=== PATIENT | female | born 1970 | race Hispanic/Latino ===

== ENCOUNTER 2018-01-05 09:50 | Outpatient (CLI) | payer OTHER ==
--- NOTE | 2018-01-12 11:27 | MMO ---
BILATERAL SCREENING MAMMOGRAM: DATE: 01/05/18 HISTORY: 48-year-old female for screening mammography. COMPARISON: 11/16/16, 04/25/15. FINDINGS: Bilateral MLO and CC views of the breasts show scattered fibroglandular breast tissue. There is no ev idence of suspicious mass, suspicious cluster of microcalcifications, or area of architectural distor tion. Interpretation of this mammogram was performed with the assistance of computer-aided detection. IMPRESSION: BIRADS 1: Negative Annual screening mammography is recommended. POS: WILMER
== END 2018-01-05 09:51 | disposition home or self-care (01) ==
LOC: SCSMAMMO 09:50
PROVIDERS: ATTEND Family Medicine
DX: Z12.31 Encounter for screening mammogram for malignant neoplasm of breast (principal)
CPT/HCPCS: 77067

== ENCOUNTER 2019-06-27 12:08 | Outpatient (CLI) | payer OTHER ==
[2019-06-27 13:59] LABS: Hemoglobin 13.1 g/dL (12.0-16.0); Mean Corpuscular HGB CONC 33.7 g/dL (32.0-36.0); Mean Corpuscular Hemoglobin 30.7 pg (27.0-31.0); Mean Corpuscular Volume 91.1 fL (78.0-98.0); Mean Platelet Volume 7.8 fL (7.4-10.4); Platelet Count 262 thou/uL (130-400); RBC Distribution Width 12.3 % (11.5-14.5); Red Blood Cell (RBC) Count 4.27 mill/uL (4.20-5.40)
== END 2019-06-27 12:09 | disposition home or self-care (01) ==
LOC: LABBT 12:08
PROVIDERS: ATTEND Obstetrics & Gynecology
DX: Z01.812 Encounter for preprocedural laboratory examination (principal); D21.9 Benign neoplasm of connective and other soft tissue, unspecified; N92.0 Excessive and frequent menstruation with regular cycle; N81.10 Cystocele, unspecified; N39.3 Stress incontinence (female) (male)
CPT/HCPCS: 85027; 86850; 86900; 86901

== ENCOUNTER 2019-06-30 06:06 | Day surgery (SDC) | payer OTHER ==
--- NOTE | 2019-06-27 12:21 | HP ---
SCHEDULED DATE OF SURGERY: 06/30/2019. HISTORY OF PRESENT ILLNESS: Ms. Renner is a 49-year-old Latin-Croatian female, G4, P4, with tubal ligation, who has been reporting consistently irregular and heavy painful menstrual cycles. She has tried nonsteroidals in the past with no significant improvement. She saturates a super tampon an hour at times and flows for 7 to 10 days. She also feels pressure in the pelvis when she stands and loses urine with coughing and sneezing and has to wear a pad daily for urinary incontinence issues. She has no urge or frequency issues. She has had a normal Pap smear in 2018. Biopsy for evaluation of menorrhagia on 05/24/2019 was benign. PAST MEDICAL AND SURGICAL HISTORY: Her past medical and surgical history as noted was a tubal ligation. No chronic medical issues. She does use [place] as needed for some allergic rhinitis. SOCIAL HISTORY: She is a nonsmoker. No excessive alcohol use. ALLERGIES: SHE HAS ALLERGY TO FOOD, WHICH IS A CHRIS FRUIT. FAMILY HISTORY: Noncontributory. PHYSICAL EXAMINATION: VITAL SIGNS: Her height is 5 feet 1 inches, weight 165 pounds, and BMI 31.2. Blood pressure in 102/62, pulse 62, respirations 18, and O2 saturation on room air 99%. HEENT: Within normal limits. CHEST: Clear to auscultation. HEART: Regular rate and rhythm. S1 and S2 heart sounds. No murmurs, rubs, or gallops. ABDOMEN: Soft, nontender, and nondistended with no palpable masses. PELVIC: Vulva and vagina had no lesions. She has a hypermobile UV angle of 45 degrees with Valsalva and leak noted. She has a grade 2 cystocele appreciated. Uterus was small and nontender with some uterine prolapse noted. Adnexa were nontender with no masses. The uterus sounded to 9 cm for the E and D procedure. ASSESSMENT: This is a 49-year-old Latin-Croatian female, G4, P4, prior tubal ligation with menorrhagia and a midline cystocele. She also has genuine stress incontinence. Desiring definitive surgical therapy. PLAN: Plan is to proceed with robotic total laparoscopic hysterectomy and removal of bilateral tubal segments, followed by anterior repair with Advantage Fit TVT with cystoscopy. Risks and benefits of procedure, I have discussed in detail. She is set for surgery on 06/30/2019. Job ID: [id number]
[2019-06-27 12:23] VITALS: BMI 30.3
[2019-06-30] MEDS ORDERED: Famotidine/PF 20 mg/2ml Vial ONE (06:14)
[2019-06-30] MEDS ORDERED: Gabapentin 300 MG CAP ONE (06:14)
[2019-06-30] MEDS ORDERED: CeleCOXIB 100 MG CAP ONE (06:14)
[2019-06-30] MEDS ORDERED: Lidocaine 2% Jelly 5 ML TUBE ONE (06:25)
[2019-06-30] MEDS ORDERED: Fentanyl 100 MCG/2 ML VIAL ONE (06:25)
[2019-06-30] MEDS ORDERED: Lidocaine 1% w/Epinephrine 1:100K 20 ML VIAL ONE (06:52)
[2019-06-30] MEDS ORDERED: Bupivacaine PF 0.5% 30 ML VIAL ONE (06:52)
[2019-06-30 07:27] LABS: BHCG - Serum Negative (NEGATIVE); Pregs Control Background? CLEAR/WHITE (CLR/WHITE); Pregs Control Bar Appear? YES (CONTROL BAR)
[2019-06-30] MEDS ORDERED: Midazolam HCl 2 mg/2 ml Vial ONE (07:31)
[2019-06-30] MEDS ORDERED: PROPOFOL 200 MG/20 ML VIAL ONE (10:09)
[2019-06-30] MEDS ORDERED: Glycopyrrolate 0.2 MG/ML 5 ML SYRINGE ONE (10:09)
[2019-06-30] MEDS ORDERED: Ketorolac Tromethamine 30 MG/ML VIAL ONE (10:09)
[2019-06-30] MEDS ORDERED: Lidocaine 1% PF 5 ML VIAL ONE (10:09)
[2019-06-30] MEDS ORDERED: Ondansetron PF 4 MG/2 ML Vial ONE (10:09)
[2019-06-30] MEDS ORDERED: ePHEDrine/0.9% NaCl/PF SYRINGE 50 mg/10 ml ONE (10:09)
[2019-06-30] MEDS ORDERED: Dexamethasone 20 MG/5 ML VIAL ONE (10:09)
[2019-06-30] MEDS ORDERED: Rocuronium Bromide 10 MG/ML (10ML VIAL) ONE (10:09)
[2019-06-30] MEDS ORDERED: PHENYLEPHRINE-NS 100 MCG/ML 10 ML SYRINGE ONE (10:09)
[2019-06-30] MEDS ORDERED: Promethazine HCl 25 MG/ML VIAL SLOW IVP PRN (10:41)
[2019-06-30] MEDS ORDERED: Promethazine HCl 25 MG/ML VIAL IM PRN ×2 (10:41→11:52)
[2019-06-30] MEDS ORDERED: Ondansetron HCl/PF 4 MG/2 ML Vial IVP PRN (10:41)
[2019-06-30] MEDS ORDERED: diphenhydrAMINE 25 MG CAP PO PRN (11:52)
[2019-06-30] MEDS ORDERED: Ondansetron PF 4 MG/2 ML Vial IVP PRN (11:52)
[2019-06-30] MEDS ORDERED: Bisacodyl 10 MG SUPP PR PRN (11:52)
[2019-06-30] MEDS ORDERED: Simethicone Chewable 80 MG TAB PO PRN (11:52)
[2019-06-30] MEDS ORDERED: Acetaminophen 325 MG TAB PO PRN (11:52)
[2019-06-30] MEDS ORDERED: Zolpidem Tartrate 5 MG TAB PO PRN (11:52)
[2019-06-30] MEDS ORDERED: Morphine 4 MG/ML VIAL SLOW IVP PRN (11:52)
[2019-06-30] MEDS: Lactated Ringer's 1,000 ML IV SCH ×2 (12:04→20:15)
[2019-06-30] MEDS: Ketorolac Tromethamine 30 MG/ML VIAL IVP SCH ×3 (12:38→23:39)
--- NOTE | 2019-06-30 13:53 | OP ---
DATE OF PROCEDURE: 06/30/2019 PREOPERATIVE DIAGNOSES: 1. A 49-year-old Latin-Cuban female with menorrhagia, suspected uterine myomas and adenomyosis. 2. Grade 2 cystocele. 3. Genuine stress incontinence. POSTOPERATIVE DIAGNOSES: 1. A 49-year-old Latin-Cuban female with menorrhagia, suspected uterine myomas and adenomyosis. 2. Grade 2 cystocele. 3. Genuine stress incontinence. PROCEDURES PERFORMED: 1. Robotic total laparoscopic hysterectomy, bilateral salpingectomy. 2. Anterior repair. 3. Advantage Fit TVT with cystoscopy. CHILD DEVELOPMENT CONSULTANT SURGEON: Roxana Petty DO ANESTHESIA: General endotracheal. ESTIMATED BLOOD LOSS: 200 mL. COMPLICATIONS: None. COUNTS: Correct x2. ANTIBIOTICS: 2 g Ancef and on-call to OR. FINDINGS: 1. Bilateral normal-appearing ovaries and fallopian tubes status post tubal ligation. 2. Boggy adenomyotic appearing uterus with small uterine myomas noted. 3. Clear urine present in Shannon catheter postprocedure. 4. Cystoscopy of bladder showed bladder to be watertight to fluid distention with bilateral ureteral orifice displaying efflux post TVT procedure. 5. No evidence of any mesh placement or trocar placement within the bladder on cystoscopy evaluation. DISPOSITION: Recovery room, stable. DESCRIPTION OF PROCEDURE: The patient previously received informed consent in regard to surgery. She was taken back to the operating room, where she received a general endotracheal anesthetic agent without complications. She was placed in the dorsal lithotomy position with the use of Bud stirrups, prepped and draped in usual sterile fashion. A side-arm speculum was placed in vagina. The cervix was grasped with single-tooth tenaculum. The uterus sounded to 10 cm. A size 10-cm SUDEEP uterine manipulator with a 4.0-cm cup was placed. Tenaculum and speculum were removed. Attention was then turned to the abdomen, where perspective trocar sites were infiltrated with 0.5% Marcaine with epinephrine. A 12-mm supraumbilical incision was made and a Veress needle was introduced in the peritoneal cavity. The patient's pressure was noted to be less than 5 mm. Abdomen was insufflated with the patient's pressure of 15, approximately 5 L of carbon dioxide gas. Veress needle was then removed. A size 12-mm trocar was then placed through the supraumbilical incision and then the laparoscope was introduced through the trocar sleeve, confirming proper entry. Bilateral lower quadrant 8-mm trocars were then placed under laparoscopic guidance along with the right upper quadrant 11-mm bindery assistant port. We placed the patient in Trendelenburg position and then docked the robot in usual fashion. I broke scrub and then proceeded to carry out the procedure from the operative console while my assistants remained at the bedside. The uterus was elevated from the pelvis. The left fallopian tube fimbria was grasped by my bindery assistant. I coagulated the remainder of the mesosalpinx and then remainder of the fallopian tube and this was excised with monopolar scissors and removed out through the right upper quadrant bindery assistant port. The left uterine ovarian ligament was coagulated and transected. Serial coagulation of broad ligament hugging close to uterus was carried out until the left round ligament was reached. It was coagulated and transected. The anterior leaf of the broad ligament was entered and the vesicouterine peritoneum was incised in layering technique, dropping the bladder, past the cervicovaginal angle atraumatically. The uterine vessels were skeletonized and coagulated in the internal cervical os region. This was carried out in likewise fashion on the right side of the uterus. Again, the right fimbria and tube were removed in a similar fashion along with coagulation in the right uterine ovarian ligament, which was coagulated and transected and again serial coagulation to the right round ligament was reached, which was coagulated and transected. Again, the anterior leaf of the broad ligament was entered, dissecting the vesicouterine peritoneum in a layering technique, dropping the bladder safely, past the cervicovaginal margin. The uterine vessels again were skeletonized and coagulated in the internal cervical os region. The anterior colpotomy was then created from 12 to 3 and 12 to 9 o'clock position, then was completed posteriorly from 6 to 9 and 6 to 3 o'clock. The uterine specimen was brought into the pelvis. The vaginal cuff was coagulated of any oozing areas with a bipolar fenestrated cautery. I then had 0 Vicryl sutures placed into the abdomen, where I tagged it with a double throw on both right and left uterosacral ligaments of the vaginal cuff and the needle was removed from the suture. The sutures were then brought into the vagina, which would enable us to incorporate the uterosacral ligaments and the vaginal cuff during the during the vaginal cuff closure. The trocar sleeves were removed. A deep stitch of 0 Vicryl was placed in the umbilical fascial defect. The remainder of the trocar sites were closed with 4-0 Monocryl suture and Dermabond. We then prepared the patient for the vaginal portion of the surgery. A weighted speculum was placed in the vagina. The previous tagged uterosacral ligament sutures were grasped both right and left side and tagged with hemostats. A Marlin blade was then placed. I was then added extra vaginal angle sutures in both the right and left sides with 0 Vicryl sutures and these were also tagged. A weighted speculum was placed in vagina. The anterior vaginal mucosa was infiltrated with 1% lidocaine with epinephrine. The vaginal mucosa was incised with Metzenbaum scissors up to approximately 2.5 cm from the urethral meatus. The edges of the vaginal mucosa were grasped with Allis clamps and then the cystocele was dissected both sharply and bluntly. Once this was reduced, the endopelvic fascia was replicated in the midline with 2-0 Vicryl sutures, repairing the cystocele defect. The vaginal mucosa over this area was then closed with interrupted [id number] stitches of 2-0 Vicryl, incorporating some of the space with good hemostasis noted. Then, the vaginal cuff was closed with 0 Vicryl suture horizontally. The uterosacral stitches were tied to the angle stitches for more support. The cuff was then closed and hemostasis confirmed. The legs of the patient were brought down with the knees level with each bilateral axilla. The midportion of the symphysis pubis was marked and then 2 cm lateral to each side were marked for anticipated trocar placement of the TVT device. The midline urethra was identified by palpation of the Shannon bulb. Two Allis clamps were placed superiorly and inferiorly to this. This area was infiltrated with 1% lidocaine with epinephrine. A 1.5 cm vertical mucosal incision over the midurethra was made with a scalpel blade. The edges of the mucosa were grasped with the Allis clamps. Metzenbaum scissors were then utilized to dissect submucosally the vaginal mucosa to the direction of the pubic symphysis and inferior pubic ramus junction, perforating into the space of Retzius bilaterally. We then assembled the Advantage Fit TVT device with the mesh in place. The left side of the mesh was placed through the previously dissected tunnel on the patient's left side. This had been carried out after the suprapubic area had been hydrodissected with 60 mL of sterile water. The trocar was then palpated by my bindery assistant per the previously marked 2 cm area, then marked up, then perforated through the skin. The trocar was removed. Then, my bindery assistant grasped the end of the mesh tag with a Cooper clamp. Then, this was carried out in likewise fashion on the patient's right side, dropping the handle, and then brushing under the symphysis pubis until the designated site was perforated through the skin. Again, the mesh tag was grasped by my bindery assistant with a Cooper clamp and the trocar was removed. We then assembled the cystoscope. A Glidewire and Shannon had been placed, deviating the bladder up to the opposite direction for each one during each trocar placement. This had been removed. The 70-degree scope was placed into the bladder and the bladder was distended. There was no evidence of any mesh placement. The bladder was watertight to fill and there was no evidence of any upper bladder injury or mesh placement inside the bladder itself. We then visualized the ureteral orifices bilaterally and bilateral efflux was visualized. Once this had been confirmed, the excess fluid was drained from the bladder. I then placed a Frye scissor underneath the midline portion of the mesh and this was then pulled up snugly up to the midurethra and ensuring that the mesh laid flat in right position. I then cut the stay tag and then the plastic sheaths were removed intact bilaterally. The Frye scissor was then removed. The mucosa over the midurethra was closed with interrupted [id number] sutures x2 with 2-0 Vicryl. I then packed the vagina with a moistened Kerlix for added hemostasis. The Shannon catheter was draining clear urine. The patient was awakened from anesthesia and transferred to recovery room in stable condition. Job ID: [id number]
[2019-06-30] MEDS: traMADol HCl 50 MG TAB PO PRN (16:39)
[2019-06-30] MEDS: Ibuprofen 800 MG TAB PO SCH (20:15)
[2019-07-01] MEDS: Lactated Ringer's 1,000 ML IV SCH ×2 (04:21→11:41)
[2019-07-01] MEDS: Ketorolac Tromethamine 30 MG/ML VIAL IVP SCH ×2 (05:33→11:36)
[2019-07-01 06:17] LABS: Hemoglobin 10.7 g/dL (12.0-16.0); Mean Corpuscular HGB CONC 33.6 g/dL (32.0-36.0); Mean Corpuscular Hemoglobin 30.9 pg (27.0-31.0); Mean Platelet Volume 7.7 fL (7.4-10.4); Platelet Count 224 thou/uL (130-400); RBC Distribution Width 12.4 % (11.5-14.5); Red Blood Cell (RBC) Count 3.48 mill/uL (4.20-5.40); White Blood Cell (WBC) Count 11.9 thou/uL (4.8-10.8)
[2019-07-01] MEDS: Ibuprofen 800 MG TAB PO SCH (08:16)
--- NOTE | 2019-07-01 08:21 | PDOC.EVN ---
Event Note - Event Note Event Note: Good pain control. tolerating diet. ambulating. O:AFVSS. HCT 32% abdomen is soft/trochar sites c/d/i. A/P:Post op day 1 from robotic tlh with anterior repair and tvt. Doing wll. Voiding trials. plan for discharge today.
[2019-07-01 11:07] VITALS: BP 94/59; TEMP 97.4
[2019-07-01] MEDS: traMADol HCl 50 MG TAB PO PRN (14:38)
--- NOTE | 2019-07-01 15:38 | DIS ---
DATE OF ADMISSION: 06/30/2019 DATE OF DISCHARGE: 07/01/2019 DIAGNOSES: 1. Symptomatic cystocele. 2. Menorrhagia. 3. Genuine stress incontinence. PROCEDURES PERFORMED: 1. Robotic total laparoscopic hysterectomy with bilateral salpingectomy. 2. Anterior repair. 3. Advantage Fit TVT with cystoscopy. SUMMARY OF HOSPITAL COURSE: Ms. Renner is a 49-year-old Latin-Slovak female with heavy menstrual bleeding and also pelvic prolapse with cystocele and genuine stress incontinence. She underwent a robotic total laparoscopic hysterectomy with bilateral salpingectomy with anterior repair and Advantage Fit TVT with cystoscopy on 06/30/2019. Postoperatively, the patient, has done well. Hematocrit was 32% on postop day #1. She is ambulating and voiding without difficulty, with voiding trial showing voids of 400 mL with less than 150 mL postvoid residuals. She was discharged home on postop day #1. Discharge medications will be [place] 5 mg/325 one p.o. q.4 hours p.r.n. pain and also [id number] ibuprofen as directed along with stool softeners as directed. She has a followup scheduled in 2 and 6 weeks. Pathology is pending at the time of dictation. Job ID: [id number]
== END 2019-07-01 15:55 | disposition home or self-care (01) ==
LOC: SDC 06:06 → SURG A 11:58 → SDC 07-01 15:55
PROVIDERS: ATTEND Obstetrics & Gynecology
PROC: 0TSD0ZZ Reposition Urethra, Open Approach (ICD-10-PCS; principal; 2019-06-30)
PROC: 0UT94ZZ Resection of Uterus, Percutaneous Endoscopic Approach (ICD-10-PCS; principal; 2019-06-30)
PROC: 0UT74ZZ Resection of Bilateral Fallopian Tubes, Percutaneous Endoscopic Approach (ICD-10-PCS; principal; 2019-06-30)
PROC: 0JQC0ZZ Repair Pelvic Region Subcutaneous Tissue and Fascia, Open Approach (ICD-10-PCS; principal; 2019-06-30)
DX: D25.1 Intramural leiomyoma of uterus (principal); N72 Inflammatory disease of cervix uteri; N83.8 Other noninflammatory disorders of ovary, fallopian tube and broad ligament; N81.2 Incomplete uterovaginal prolapse; N39.3 Stress incontinence (female) (male); Z91.018 Allergy to other foods
CPT/HCPCS: 36415; 84703; 85027; 88307; C1781; J0131; J0690; J1100; J1885; J2001; J2250; J2405; J2704; J3010; S0020; S0028

== ENCOUNTER 2023-08-17 18:47 | Emergency (ER) | payer SELFPAY ==
[2023-08-17 19:16] LABS: Bacteria/HPF 1+ HPF (None Seen); Bilirubin Negative (Negative); Blood, Urine 3+ (Negative); CAUTI Indications for Culture Pelvic or flank pain; Clarity Turbid (Clear); Glucose, Urine (Dipstick) Normal (Negative); Ketone, Urine Negative (Negative); Leukocyte 500 Leu/uL (Negative); Nitrite Negative (Negative); Protein, Urine (Dipstick) 70 mg/dL (Neg-Trace); RBC/HPF Greater than 50 HPF (0-3); Renal Epithelial 0-3 HPF (None Seen); Specific Gravity, Urine 1.012 (1.002-1.036); Squamous Epithelial 0-3 HPF (0-3); Urobilinogen Normal mg/dL (Less than 2); WBC/HPF Greater than 50 HPF (0-3); pH, Urine 7.5 (5.0-9.0)
[2023-08-17 19:17] LABS: Urine Culture Reflex Yes Yes
[2023-08-17 20:17] LABS: #Eosinphils 0.1 thou/uL (0.0-0.7); #Monocytes 0.7 thou/uL (0.11-0.59); #Neutrophils 9.1 thou/uL (1.40-6.50); %Basophils 0.3 % (0.0-1.0); %Eosinophils 1.1 % (0.0-10.0); %Lymphocytes 13.9 % (21.0-51.0); %Monocytes 5.8 % (0.0-10.0); %Neutrophils 78.6 % (42.0-75.0); Hematocrit 40.6 % (36.0-47.0); Hemoglobin 13.9 g/dL (12.0-16.0); Mean Corpuscular HGB CONC 34.2 g/dL (32.0-36.0); Mean Corpuscular Hemoglobin 30.5 pg (27.0-31.0); Mean Corpuscular Volume 89.2 fl (78.0-98.0); Mean Platelet Volume 10.1 fL (7.4-10.4); Platelet Count 257 10x3/uL (130-400); RBC Distribution Width 13.1 % (11.5-14.5); Red Blood Cell (RBC) Count 4.55 mill/uL (4.20-5.40); White Blood Cell (WBC) Count 11.6 10x3/uL (4.8-10.8)
[2023-08-17] MEDS ORDERED: Ketorolac Tromethamine 30 MG (1 mL) VIAL ONE (20:20)
[2023-08-17] MEDS ORDERED: cefTRIAXone (ROCEPHIN) 1 GM VIAL ONE (20:20)
[2023-08-17] MEDS ORDERED: Sodium Chloride 0.9% 100 ML ONE (20:20)
[2023-08-17 20:40] LABS: ALT (SGPT) 13 U/L (8-55); AST (SGOT) 19 U/L (5-34); Alkaline Phosphatase 86 U/L (40-110); Anion Gap 12 mmol/L (10-20); BUN (Urea Nitrogen) 11 mg/dL (9.8-20.1); Bilirubin, Total 0.4 mg/dL (0.2-1.2); Calc. Creatinine Clearance 0 mL/min (70-130); Calcium 9.6 mg/dL (7.8-10.44); Carbon Dioxide 25 mmol/L (22-29); Chloride 104 mmol/L (98-107); Estimated GFR 92; Globulin 4.1 g/dL (2.4-3.5); Glucose 103 mg/dL (70-105); Potassium 4.3 mmol/L (3.5-5.1); Protein, Total 8.1 g/dL (6.0-8.3); Sodium 137 mmol/L (136-145)
== END 2023-08-17 22:18 | disposition home or self-care (01) ==
LOC: ERS 18:47
DX: N10 Acute pyelonephritis (principal)
CPT/HCPCS: 36415; 74176; 80053; 81001; 83605; 83690; 85025; 87040; 87077; 87086; 87186; 96365; 96375; J0696; J1885; J3490